=== PATIENT | male | born 1990 | race Caucasian/White ===

== ENCOUNTER 2018-12-17 00:03 | Emergency (ER) | payer BC ==
[2018-12-17] MEDS ORDERED: ACETAMINOPHEN 1,000 MG/100 ML BTL IVPB ONE (00:08)
[2018-12-17] MEDS ORDERED: KETOROLAC 30 MG/ML VIAL IVP ONE (00:08)
[2018-12-17] MEDS ORDERED: ONDANSETRON HCL IV 4 MG/2 ML VIAL IVP ONE (00:08)
--- NOTE | 2018-12-17 00:14 | Emergency Department Record ---
History of Present Illness - General Chief Complaint: Abdominal Pain Stated Complaint: ABDOMINAL PAIN Time Seen by Provider: 12/17/18 00:07 Source: Patient, Family Mode of Arrival: Ambulatory Limitations: No limitations - History of Present Illness Initial Comments: 28 yo male presents not feeling well since December 06. He has had headaches, sore throat, cough, abdominal pain, nausea, vomiting, muscle pain all over. He was seen at a [facility] because of dental pain on 12/10/18. He was started on Penicillin. He states last he was exposed to people with the Flu. He noticed he started to feel even worse over the weekend. He has very little appetite, nausea, vomiting. He is lightheaded with standing. He does smoke. He is normally healthy. His cough is non productive. No neck pain or stiffness. The person with the Influenza was a date. He states they "made out ". His symptoms have been over 72 hours. He states he has daily headaches normally. He states he has had migraines on a daily basis since 2016. He states he has constantly had wisdom teeth issues since about the same time in 2016. He states his work keeps him too busy to see a doctor. He states he has not had a fever at home that he measured. Complaint: Other -: Days(s) Location: Diffuse Radiation: Other Migration to: Other Severity: Moderate Quality: Aching Consistency: Constant Improves With: Nothing Worsens With: Eating Context: Sick contacts (He made out with someone that tested positive for the flu) Associated Symptoms: Anorexia, Nausea, Vomiting - Related Data Home Medications Medication Instructions Recorded Confirmed Last Taken Penicillin V Potassium 500 mg PO TID 12/17/18 12/17/18 12/17/18 Prednisone [Prednisone 1Mg] 1 tab PO ASDIR 12/17/18 12/17/18 12/17/18 Previous Rx's Medication Instructions Recorded Ibuprofen [Motrin 600Mg] 600 mg PO Q6H #20 tablet 12/17/18 Ondansetron [Zofran Odt] 4 mg PO Q8H #20 tab.rapdis 12/17/18 Allergies Allergy/AdvReac Type Severity Reaction Status Date / Time No Known Drug Allergies Allergy Verified 05/14/14 18:02 Review of Systems Constitutional: Reports: Chills, Malaise, Weakness Eyes: Denies: Eye discharge, Eye pain, Photophobia, Vision change ENT: Reports: Congestion, Ear pain, Throat pain Respiratory: Reports: Cough. Denies: Dyspnea, Hemoptysis, Stridor, Wheezes Cardiovascular: Reports: Chest pain, Syncope. Denies: Edema Endocrine: Reports: Fatigue Gastrointestinal: Reports: Abdominal pain, Nausea, Vomiting. Denies: Diarrhea Genitourinary: Denies: Dysuria, Frequency, Hematuria Musculoskeletal: Reports: Arthralgia, Back pain, Myalgia. Denies: Neck pain Skin: Denies: Bruising, Change in color, Rash Neurological: Reports: Headache (daily headaches since 2016), Tingling (hands tingle). Denies: Numbness Psychiatric: Denies: Anxiety Hematological/Lymphatic: Denies: Blood Clots, Easy bleeding, Easy bruising Past Medical History - SOCIAL HISTORY Smoking Status: Current every day smoker - RESPIRATORY Hx Respiratory Disorders: No - CARDIOVASCULAR Hx Cardio Disorders: No - NEURO Hx Neuro Disorders: Yes Hx Headaches: Yes - GI Hx GI Disorders: No - Hx Genitourinary Disorders: No - ENDOCRINE Hx Endocrine Disorders: No - MUSCULOSKELETAL Hx Musculoskeletal Disorders: Yes Hx Back Injury: Yes - PSYCH Hx Psych Problems: No - HEMATOLOGY/ONCOLOGY Hx Hematology/Oncology Disorders: No Physical Exam - General General Appearance: Alert, Oriented x3, Cooperative, No acute distress Limitations: No limitations - Head Head exam: Atraumatic, Normal inspection - Eye Eye exam: Normal appearance, PERRL, EOMI. negative: Conjunctival injection, Periorbital swelling, Scleral icterus - ENT ENT exam: Normal exam, Mucous membranes moist, Normal orophraynx, TM's normal bilaterally Ear exam: Normal external inspection Nasal Exam: Normal inspection. negative: Discharge Mouth exam: Normal external inspection Teeth exam: Normal inspection. negative: Dental caries Throat exam: Normal inspection, Tonsillar erythema, Tonsillomegaly, Tonsillar exudate, R peritonsillar mass, L peritonsillar mass - Neck Neck exam: Normal inspection, Full ROM. negative: Lymphadenopathy, Meningismus (Full ROM without painful response), Tenderness - Respiratory Respiratory exam: Normal lung sounds bilaterally. negative: Respiratory distress - Cardiovascular Cardiovascular Exam: Regular rate, Normal rhythm, Normal heart sounds - GI/Abdominal GI/Abdominal exam: Soft, Normal bowel sounds, Tenderness (tender diffusely but very soft) - Rectal Rectal exam: Deferred - exam: Deferred - Extremities Extremities exam: Normal inspection, Tenderness (tender arms and legs but normal inspection, no swelling) - Back Back exam: Reports: Normal inspection. 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 No acute abnormality. No fever on initial examination No meningeal symptoms to suggest meningitis. His neck is supple without adenopathy, no pain on full ROM. He does not acutely appear ill. Given the duration of the symptoms I recommend supportive treatment, labs, UA. The CBC is without abnormality The BMP is without significant abnormality He does admit to frequent sexual encounters through [employer]. I discussed the risks of exposures to STDs, HIV, Herpes, HPV. I does not express any concerns of a known exposure to any STDs or HIV. I explained a generalized viral infection can have the same sore throat, cough, fevers, headaches, NVD. I recommend HIV testing now and then in a 2-4 weeks with his PCP or the health department. He understands and agrees with this plan. He denies any symptoms at this time. 12/17/18 00:44 LFT's reviewed AST is 207 ALT is 361 Bili is 1.1 Alk Phos is 119 [place] is negative 12/17/18 01:04 HIV is negative I explained clearly that he should have repeat MONO, HIV testing as well as recheck liver tests as an outpatient. I recommend the LFT's be rechecked in 2-3 days 12/17/18 01:38 Given his daily headaches for three years a head CT was ordered 12/17/18 02:02 The HCT was negative I discussed the results again at length. He is afebrile, normal WBC count, numerous symptoms likely representing a viral syndrome especially in light of close contact with another sick individual on . No signs of meningitis with supple neck atypical chronic daily headache. Numerous constitutional symptoms. He is much improved. We discussed close follow up or return to recheck his LFT and possible US if he is not feeling better. 12/17/18 02:12 Medical Decision Making - Lab Data Result diagrams: 12/17/18 00:14 12/17/18 00:14 Disposition Disposition: Discharge Clinical Impression: Viral syndrome Disposition: Home, Self-Care Condition: (1) Good Instructions: Viral Syndrome (ED) Additional Instructions: Call the number for a new family doctor on Monday Rest and stay well hydrated Take the prescriptions for nausea as directed Call for a dentist as well to evaluate your chronic wisdom teeth pain I strongly recommend repeat [place] and HIV testing in 2-4 weeks as there can be a delay from time of exposure to positive tests. This can be done through a new family doctor or the health department. Do not have unprotected sex You will need to have your liver tests recheck in 2-3 days in the ED, [facility] or a new family doctor Prescriptions: Ibuprofen [Motrin 600Mg] 600 mg PO Q6H #20 tablet Ondansetron [Zofran Odt] 4 mg PO Q8H #20 tab.rapdis Referrals: IRAIS SEGOVIA [MEDICAL DOCTOR] - Forms: Patient Portal Access Time of Disposition: 02:12 Quality - Quality Measures Quality Measures: N/A - Blood Pressure Screening Does Patient Have Any of the Following: No Blood Pressure Classification: Normal BP Reading Systolic Measurement: 93 Diastolic Measurement: 62 Screening for High Blood Pressure: < Normal BP, F/U Not Required > [G8783]
[2018-12-17 00:20] LABS: BASO % 0.4 % (0-6); EOS % 1.1 % (0-6); GRAN % 71.7 % (47-80); HEMATOCRIT 43.3 % (42.0-52.0); HEMOGLOBIN 14.6 gm/dl (14.0-18.0); LYMPH % 16.7 % (16-45); MEAN CELL VOLUME 84.4 fl (81-97); MEAN CORPUSCULAR HEMOGLOBIN 28.5 pg (27-33); MEAN CORPUSCULAR HGB CONC 33.7 g/dl (32-36); MEAN PLATELET VOLUME 10.5 fl (7.4-10.4); MONO % 10.1 % (0-9); PLATELET COUNT 161 K/uL (130-400); RED BLOOD COUNT 5.13 M/uL (4.40-5.70); WHITE BLOOD COUNT W/O DIFF 4.7 K/uL (4.2-12.2)
[2018-12-17] MEDS: 0.9 % SODIUM CHLORIDE 1,000 ML BAG IV ONE ×2 (00:23→00:26)
[2018-12-17 00:33] LABS: INR 1.1; PARTIAL THROMBOPLASTIN TIME 26.3 SECONDS (24.5-39.1); PROTHROMBIN TIME (PATIENT) 10.6 SECONDS (9.5-12.1)
[2018-12-17 00:36] LABS: BLOOD UREA NITROGEN 17 mg/dL (6-20); CREATININE 0.8 mg/dL (0.7-1.2); EST GLOMERULAR FILTRATION RATE > 60 mL/min; INFLUENZA A NEGATIVE (NEGATIVE); LIPASE 36 U/L (13-60)
[2018-12-17 00:37] LABS: INFLUENZA B NEGATIVE (NEGATIVE)
[2018-12-17 00:38] LABS: GLUCOSE,RANDOM 107 mg/dL (74-109)
[2018-12-17 00:41] LABS: ALB/GLOB RATIO 1.4 (1.1-1.8); ALBUMIN 4.1 g/dL (4.0-5.0); ALKALINE PHOSPHATASE 119 U/L (40-129); ALT/SGPT 361 U/L (<41); AST/SGOT 207 U/L (10.0-50.0)
[2018-12-17] MEDS ORDERED: MORPHINE SULFATE 10 MG/ML VIAL IVP ONE (01:01)
[2018-12-17 01:12] LABS: URINE APPEARANCE CLEAR; URINE BILIRUBIN NEGATIVE (NEGATIVE); URINE BLOOD NEGATIVE (NEGATIVE); URINE COLOR YELLOW; URINE GLUCOSE (UA) NEGATIVE (NEGATIVE); URINE KETONE NEGATIVE (NEGATIVE); URINE LEUKOCYTE ESTERASE NEGATIVE (NEGATIVE); URINE NITRITE NEGATIVE (NEGATIVE); URINE PROTEIN TRACE (NEGATIVE); URINE UROBILINOGEN >=8.0 E.U./dL (0.20 - 1.00)
[2018-12-17] MEDS ORDERED: ONDANSETRON 4 MG ODT TABLET SL ONE (02:09)
--- NOTE | 2018-12-18 10:48 | CT SCAN REPORT ---
EXAM: CT OF THE BRAIN WITHOUT CONTRAST HISTORY: DAILY HEADACHES. FLU LIKE SYMPTOMS. TECHNIQUE: Routine noncontrast CT of the brain was obtained. Comparison: None. FINDINGS: The subarachnoid spaces and ventricles are normal in size. No area of abnormally increased or decreased attenuation is noted throughout the brain substance. The lowe white interfaces are distinct. No abnormal extraaxial fluid collection is seen. No lytic or blastic bone lesion is identified. The visualized paranasal sinuses and mastoid air cells are clear. The orbits as visualized are unremarkable. IMPRESSION: NEGATIVE NONCONTRAST CT APPEARANCE OF THE BRAIN. JOB NUMBER: [id number] MTDD
== END 2018-12-17 02:53 | disposition home or self-care (01) ==
LOC: ER 00:03
DX: B34.9 Viral infection, unspecified (principal); R10.9 Unspecified abdominal pain; R51 Headache; R94.5 Abnormal results of liver function studies; J02.9 Acute pharyngitis, unspecified; R05 Cough; R11.2 Nausea with vomiting, unspecified; R42 Dizziness and giddiness; F17.210 Nicotine dependence, cigarettes, uncomplicated
CPT/HCPCS: 70450; 80053; 81003; 83690; 85025; 85610; 85730; 86308; 87390; 87400; 93005; 93010; 96374; 96375; 99284; J1885; J2270; J2405; J7030